=== PATIENT | female | born 1945 | race Caucasian/White ===

== ENCOUNTER 2019-05-03 18:03 | Inpatient (IN) ==
[2019-05-03 23:00] LABS: URINE SOURCE CLEAN CATCH
[2019-05-03 23:04] LABS: BILIRUBIN URINE NEGATIVE (NEGATIVE); BLOOD URINE TRACE (NEGATIVE); COLOR YELLOW; GLUCOSE URINE NEGATIVE (NEGATIVE); KETONE URINE NEGATIVE (NEGATIVE); LEUKOCYTES URINE LARGE (NEGATIVE); NITRITE URINE POSITIVE (NEGATIVE); PH URINE 6.5; PROTEIN URINE TRACE mg/dL (NEGATIVE); SP GRAVITY URINE 1.016; TURBIDITY URINE HAZY (CLEAR); UROBILINOGEN URINE NORMAL (NORMAL)
[2019-05-03 23:14] LABS: UR EPITHELIAL CELLS <10 /HPF (<10); URINE BACTERIA 1+ /HPF; URINE CASTS NONE SEEN; URINE CRYSTALS NONE SEEN; URINE RBC <10 /HPF (<10); URINE SMALL ROUND CELLS NONE SEEN; URINE WBC TNTC /HPF (<10); URINE YEAST PRESENT
[2019-05-03 23:21] LABS: BASO# 0.05 X1000 (0.0-0.2); BASO% 0.6 % (0.0-0.8); EOS# 0.34 X1000 (0.0-0.7); EOS% 3.9 % (0.0-10.0); HEMATOCRIT 35.5 % (37.0-47.0); LYMPH# 2.58 X1000 (1.2-3.4); LYMPH% 29.9 % (20.5-51.1); MCH 26.8 PG (27-31); MCV 86.6 FL (81-99); MONO# 0.63 X1000 (0.11-0.59); MONO% 7.3 % (1.7-9.3); MPV 10.2 FL (7.4-10.4); NEUT# 5.04 X1000 (1.4-6.5); NEUT% 58.3 % (42.2-75.2); PLT 168 X1000 (130-400); RDW 15.5 % (11.5-14.5); WBC 8.64 X1000 (4.8-10.8)
[2019-05-03] MEDS ORDERED: LEVAQUIN 500 MG/D5W 500 MG/100 ML IVPB IV ONE (23:26)
--- NOTE | 2019-05-03 23:26 | PROVIDER DOCUMENTATION ---
This chart was entered by Maddie Swan Scribe, acting as scribe for Abhi Em MD. HPI-Musculoskeletal Pain/Inj - GENERAL Chief Complaint: Fall Stated Complaint: FALL Time Seen by Provider: 05/03/19 21:45 Source: patient, family (daughter), EMS - HX OF PRESENT ILLNESS-MUSKULOSKELTAL Nature of Presenting Problem: 74 yowf presents to the ed via ems with her daughter. pt sts she fell today going down 2 steps hitting her back on a sewing machine. pt daughter sts pt has frequent falls and 3 weeks prior had a compression fx in her back and is scheduled for an MRI tomorrow. pt fell at approximately 1430 today and daughter found pt in the floor of her home at 1700. pt c/o thoracic back, left knee pain. pt denies LOC with todays fall. daughter sts she believes the pt fell the first time landing on the left knee and then once trying to get up fell backwards hitting her back. Quality of Pain: reports: aching Severity in ED: moderate Onset/Duration: this afternoon (1430) Timing: still present Modifying Factors: worse with: movement, palpation Any recent injury?: Yes Locality of Occurance: Home Similar Symptoms Previously?: Yes (freq falls) Recently seen or treated by another doctor?: No - FALL INJURY Location of Pain/Injury: reports: neck, lower extremity Pain Radiation: reports: back Reason for Fall: reports: lost balance Symptoms prior to fall:: reports: dizzy/lightheaded Loss of Consciousness: no loss of consciousness Injury Associated Symptoms: reports: back/neck pain, joint pain. denies: shortness of breath, vomiting Review of Systems - Adult - REVIEW OF SYSTEMS - ADULT Constitutional: denies: chills, fever Eyes: reports: no symptoms reported Ears, Nose, Mouth & Throat: reports: no symptoms reported Cardiovascular: denies: chest pain, palpitations Respiratory: denies: cough, shortness of breath, wheezing Gastrointestinal: denies: diarrhea, nausea, vomiting Genitourinary: reports: no symptoms reported Musculoskeletal: reports: see HPI, back pain, joint pain, neck pain Integumentary: reports: no symptoms reported Neurological: reports: see HPI, dizziness/vertigo, loss of balance. denies: headache/migraines Psychiatric: reports: no symptoms reported Endocrine: reports: no symptoms reported Hematologic/Lymphatic: reports: no symptoms reported Allergic/Immunologic: reports: no symptoms reported All Other Systems: Reviewed and Negative Past History - Adult - PAST MEDICAL HISTORY-ADULT Review of Records: reports: Old Records Reviewed, Nursing Assessment Review, Medications Reviewed, Social history reviewed & non-contributory. Major Childhood Illnesses: reports: denies history Cardiovascular: reports: HTN, hyperlipidemia Respiratory: reports: denies history Gastrointestinal: reports: GERD Obstetrical/Gynecological: reports: denies history Genitourinary: reports: chronic UTI's Musculoskeletal: reports: denies history Neurological: reports: denies history Psychiatric: reports: denies history Endocrine/Immune: reports: thyroid disorder Other Conditions: reports: denies history - PRIOR SURGERIES/PROCEDURES Surgical/Procedure History: reports: cholecystectomy, hysterectomy - IMMUNIZATION STATUS Childhood Immunizations: See Nurse Assessment Flu Vaccine: See Nurse Assessment - FAMILY HISTORY Family History: reviewed, not pertinent - SOCIAL HISTORY Smoking: denies Substance Use: denies Living Situation: alone Physical Exam-Injury Related - Physical Exam-Injury Related Initial Vital Signs Reviewed: Yes General Appearance: appears well (pt is nontoxic in appearance), alert, mild distress, obese Eyes: PERRL/EOMI, pink conjunctivae Head, Ears, Nose, Mouth & Throat: moist mucous membranes Neck: normal inspection, tender lateral. negative: ecchymosis Respiratory: chest non-tender, lungs clear, normal breath sounds Cardiovascular: normal peripheral pulses, regular rate, rhythm Chest/Breast: deferred Abdominal Exam: normal bowel sounds, non tender, soft Female Genitalia/Pelvic Exam: deferred Rectal Exam: deferred Hemoccult Exam: deferred Lymphatic: no adenopathy Back Exam: no CVA tenderness, no vertebral tenderness, other (thoracic back pain with noted abrasion) Extremity: normal inspection, normal capillary refill, pelvis stable, tenderness (left knee pain) Integumentary: normal color, warm/dry, abrasion (thoracic back) Neurologic: grossly normal Psych/Mental Status: normal mood/affect, normal thought content, normal thought process, oriented x 3 - Glascow Coma Score Best Eye Response ([place]): (4) open spontaneously Best Verbal Response ([place]): (5) oriented Best Motor Response ([place]): (6) obeys commands [place] Total: 15 Progress - PLAN OF CARE/RESULTS Progress/Plan/Lab Results: Vital Signs - 8 hr 05/03/19 19:10 Temperature 98.5 F Pulse Rate 73 Respiratory Rate 18 Blood Pressure 111/64 O2 Sat by Pulse Oximetry 95 Laboratory Results - last 24 hr 05/03/19 05/03/19 22:55 23:11 WBC 8.64 RBC 4.10 L Hgb 11.0 L Hct 35.5 L MCV 86.6 MCH 26.8 L MCHC 31.0 L RDW Std Deviation 15.5 H Plt Count 168 MPV 10.2 Immature Gran % (Auto) 0.0 Neut % (Auto) 58.3 Lymph % (Auto) 29.9 Robertson % (Auto) 7.3 Eos % (Auto) 3.9 Baso % (Auto) 0.6 Immature Gran # (Auto) 0.00 Neut # (Auto) 5.04 Lymph # (Auto) 2.58 Robertson # (Auto) 0.63 H Eos # (Auto) 0.34 Baso # (Auto) 0.05 Urine Source CLEAN CATCH Urine Color YELLOW Urine Turbidity HAZY Urine pH 6.5 Ur Specific [place] 1.016 Urine Protein TRACE A Ur Glucose (Stick) NEGATIVE Ur Ketones (Stick) NEGATIVE Urine Blood TRACE A Urine Nitrite POSITIVE A Urine Bilirubin NEGATIVE Urobilinogen Dipstick NORMAL Urine Leukocytes LARGE A Urine WBC (Auto) TNTC A Urine RBC (Auto) <10 U Epithel Cells (Auto) <10 Urine Bacteria (Auto) 1+ Urine Crystals NONE SEEN Small Round Cells NONE SEEN Urine Casts NONE SEEN Urine Yeast-like Cells PRESENT Orders Category Date Time Status CT HEAD/C-SPINE W/O CONTRAST [CT] Stat Exams 05/03/19 22:[address] T-SPINE/L-SPINE W/O CON [CT] Stat Exams 05/03/19 22:01 Taken KNEE 3 VIEWS LEFT [RAD] Stat Exams 05/03/19 22:05 Taken cxr [CHEST-1 VIEW] [RAD] Stat Exams 05/03/19 22:06 Taken CBC WITH ELECTRONIC DIFF [HEME] Stat Lab 05/03/19 23:11 Completed CK PROFILE [SP CHEM] Stat Lab 05/03/19 23:11 Received COMPREHENSIVE METABOLIC PANEL [CHEM] Stat Lab 05/03/19 23:11 Received URINALYSIS W/POSS RFLX CULT [URINALYSIS] Stat Lab 05/03/19 22:55 Completed URINE MANUAL MICROSCOPIC [URINALYSIS] Stat Lab 05/03/19 22:55 Completed Result Diagrams: 05/03/19 23:11 - CT/MRI 1 CT Study: Cervical Spine (normal), Head (no acute intracranial abnormality, age appropriate exam), Lumbar Spine (Inferior L2 acute compression fx of 10-15%. old L1 compression fracture status post vertebroplasty), other (Ct thoracic spine findings osteoporpsis moderate kyphoscoliosis. multilevel degenerative disc disease. minimal loss of height of T12, indetermined chronicity. 3 cm right lower lobe liver cyst. impression:kyphoscoliosis and spondylosis. probable old minimal compression fx of T12 (L1 vertroplasty)) - CONSULTS/PCP/HOSPITALIST Notification #1 *Consult/PCP/Hospitalist*: Dr Mtz Time Discussed: 23:25 Consult Disposition: Will see in ED, Admit Departure - Departure Date of Disposition Decision: 05/03/19 Time of Disposition Decision: 23:23 DIAGNOSIS: UTI (urinary tract infection), Weakness, Falls frequently, Compression fracture Disposition: ADMITTED INPATIENT 09 Certified Medical Emergency: Emergent Condition: Fair Referrals and Follow-Ups: None,PCP [Primary Care Provider] - - Critical Care Note This patient required my direct & personal management of CC.: No Attestation - Physician/ CHRISTIN Attestation Patient care was provided by Advanced Practice Provider:: No The physician spent face to face time with patient:: Yes Advanced Practice Provider documentation review:: Supervising physician onsite and consulted in the evaluation and care of this patient. The physician did have a face to face encounter with the patient. This chart was documented by the indicated scribe, (Maddie Swan Scribe) and accurately reflects the services I performed and decisions made by me, Abhi Em MD, as attested by the provider's signature.
[2019-05-03 23:37] LABS: ALB/GLOB RATIO 1.2; ALBUMIN 3.8 g/dL (3.5-5.0); CALCIUM 8.7 mg/dL (8.8-10.2); CREATININE 1.2 mg/dL (0.5-0.9); POTASSIUM 4.2 mmol/L (3.5-5.1); TOTAL BILIRUBIN 0.68 mg/dL (0.20-1.00); TOTAL PROTEIN 7.1 g/dL (6.3-8.3)
[2019-05-04] MEDS ORDERED: ZOFRAN IV PRN (01:27)
--- NOTE | 2019-05-04 01:28 | HISTORY AND PHYSICAL ---
PRIMARY CARE PROVIDER: Dr. Suzi Santillan. CHIEF COMPLAINT: Falls, not feeling well. HISTORY OF PRESENTING ILLNESS: A 74-year-old female with a history of hypertension, hypothyroidism, COPD and GERD, who had presented to the emergency department after she had a fall. She apparently has been having falls for the past year or so. She recently also had some compression fractures to the back. She states that she did not know what happened, said her knees became weak and she fell again. She was brought to the emergency department and evaluated. Due to her presenting symptoms, it was thought that we will place her for observation for further evaluation and management. At the time of my examination the patient denied any headache, fever, chills, chest pain, shortness of breath or any weight changes, but complained of back pain and not feeling well. The patient apparently also had just finished physical therapy recently. PAST MEDICAL HISTORY: Includes hypertension, hypothyroidism, COPD, GERD, depression. PAST SURGICAL HISTORY: Vertebroplasty, cholecystectomy, appendectomy, hysterectomy. ALLERGIES: Penicillin and sulfa. MEDICATIONS: Current medications include albuterol inhaler q.4 hours, atenolol 50 mg p.o. daily, hydrochlorothiazide 12.5 mg p.o. daily, imipramine 25 mg p.o. t.i.d., levothyroxine 112 mcg p.o. daily, omeprazole 20 mg p.o. daily, prednisone 10 mg p.o. b.i.d., sertraline 100 mg p.o. daily. SOCIAL HISTORY: She is a former smoker. No history of alcohol or illicit drug use. FAMILY HISTORY: Positive for coronary disease in father. REVIEW OF SYSTEMS: Fourteen-point review of systems is as in HPI. Other systems are negative. PHYSICAL EXAMINATION: GENERAL: Cooperative, friendly female. She is resting more comfortably now. VITAL SIGNS: Temperature 98.5 degrees, pulse 73, respiration 18, blood pressure 111/64. HEENT: Extraocular movements intact. PERRLA. NECK: No masses. CHEST: Clear to auscultation. CARDIOVASCULAR: Regular rate and rhythm. ABDOMEN: Soft. Positive bowel sounds. BACK: Lumbar tenderness. NEUROLOGIC: She is awake, alert and oriented x3. GENITOURINARY: No bladder distention. SKIN: Warm. LABORATORY DATA: WBCs 8.64, hemoglobin 11.1, hematocrit 35.5, platelets 168,000. UA is nitrite- positive. Sodium 140, potassium 4.2, chloride 101, CO2 is 27, BUN is 22, creatinine is 1.2, glucose is 87. ASSESSMENT: A 74-year-old female with a history of hypertension, hypothyroidism, chronic obstructive pulmonary disease and gastroesophageal reflux disease, with a history of multiple falls. She just finished physical therapy last week. Presented to the emergency department after she had a fall again. She developed a moderate amount of back pain. She also was noted to have a urinary tract infection. Due to these findings, it was thought that we will place her for observation for further evaluation and management. 1. Status post multiple falls. 2. Complicated urinary tract infection. 3. Hypertension. 4. Chronic obstructive pulmonary disease. PLAN: 1. We will admit the patient to the medical floor with telemetry. 2. We will put the patient on fall precautions. 3. We will start the patient on IV antibiotics and check urine culture. 4. Monitor blood pressure closely. 5. Continue with DuoNeb p.r.n. 6. Put patient on DVT prophylaxis with SCDs. 7. We will continue to follow, reassess and make further recommendations based on the patient's clinical course. cc: Eugenio Mtz MD
[2019-05-04] MEDS: NS 1,000 ML IV SCH ×2 (02:01→14:47)
[2019-05-04] MEDS: INVANZ 1 GM/NS 1 GM/50 ML IVPB IV SCH (02:01)
--- NOTE | 2019-05-04 06:38 | Diag Imaging Result Doc PS360 ---
CT HEAD/C-SPINE W/O CONTRAST, CT T-SPINE/L-SPINE W/O CON - 05/03/2019 INDICATION: fall, trauma, neck pain COMPARISON: 01/20/2019, 04/19/2019 FINDINGS: Head CT: There is mild periventricular white matter chronic microvascular ischemia, stable from prior. The ventricles and sulci are normal in size and contour. No intracranial mass or hemorrhage. The skull is intact. The sinuses, mastoids, and middle ears are clear. Cervical spine: Alignment is anatomic. No fracture or subluxation. Vertebral body heights are preserved. Stable advanced degenerative disc disease. Stable facet degeneration. Thoracic spine: Alignment is anatomic. There is advanced multilevel degenerative disc disease. Minimal anterior wedging of T12 is stable from prior and indeterminate. Lumbar spine: Stable high-grade L1 compression fracture with vertebroplasty cement. There is grossly stable compression fracture of L2 by about 10-20%. Remainder of the lumbar spine appears intact. Disc spaces are overall preserved. IMPRESSION: 1. No acute injury to the head or cervical spine. 2. Compression fracture at L2 is stable from recent prior x-rays. This exam was performed using automated exposure control, adjustment of mA or kV according to patient size, and/or use of iterative reconstruction technique Electronically signed by Wilbert Wade 05/04/2019 6:35 AM
--- NOTE | 2019-05-04 07:03 | Diag Imaging Result Doc PS360 ---
EXAM: CHEST-1 VIEW 05/03/2019 HISTORY: fall, injury TECHNIQUE: AP chest COMMENT: The lungs are better expanded than on 01/30/2019. There are some coarse opacities in both lung bases which may be due to fibrosis and which were present previously. There is no evidence of pneumothorax or pleural fluid collection. IMPRESSION: No acute disease. Electronically signed by Jian Kumar 05/04/2019 7:01 AM
--- NOTE | 2019-05-04 07:32 | Diag Imaging Result Doc PS360 ---
EXAM: KNEE 3 VIEWS LEFT 05/03/2019 HISTORY: fall, knee pain TECHNIQUE: Left knee three views COMMENT: There is osteophyte formation on both sides as well as in the patellofemoral joint. There is no evidence of acute fracture or dislocation. There is a fabella. Compared to 01/20/2019 there has been no significant change. IMPRESSION: Osteoarthritis. Electronically signed by Jian Kumar 05/04/2019 7:29 AM
[2019-05-04 07:57] LABS: BASO# 0.04 X1000 (0.0-0.2); BASO% 0.6 % (0.0-0.8); EOS# 0.36 X1000 (0.0-0.7); EOS% 5.8 % (0.0-10.0); HEMATOCRIT 33.8 % (37.0-47.0); HEMOGLOBIN 10.2 g/dL (12.0-16.0); LYMPH# 2.16 X1000 (1.2-3.4); LYMPH% 34.5 % (20.5-51.1); MCH 26.4 PG (27-31); MCHC 30.2 g/dL (33-37); MCV 87.3 FL (81-99); MONO# 0.54 X1000 (0.11-0.59); MONO% 8.6 % (1.7-9.3); MPV 10.4 FL (7.4-10.4); NEUT# 3.16 X1000 (1.4-6.5); NEUT% 50.5 % (42.2-75.2); PLT 148 X1000 (130-400); RBC 3.87 XMIL (4.2-5.4); RDW 15.2 % (11.5-14.5); WBC 6.26 X1000 (4.8-10.8)
[2019-05-04 08:21] LABS: CALCIUM 8.6 mg/dL (8.8-10.2); CREATININE 1.1 mg/dL (0.5-0.9); POTASSIUM 4.3 mmol/L (3.5-5.1)
[2019-05-04] MEDS ORDERED: ULTRAM PO PRN (16:23)
--- NOTE | 2019-05-04 17:03 | PROGRESS NOTE ---
DATE: 05/04/2019 SUBJECTIVE: Ms. Blanton is a patient Dr. Suzi Santillan. She had a fall. A 74-year-old with history of hypertension, hypothyroidism, COPD, gastroesophageal reflux disease. She came to the emergency room after a fall. Apparently, she had been having falls but more frequent this last year, so recently had some compression fractures in the back. States she did not know what happened. Said that her knees became weak and she fell again, brought to the emergency department and evaluated. On examination the patient denied any headache, fever, chills, chest pain, shortness of breath, weight changes but it appeared that she might have had some new compression fractures and she did have some urinary sediment. We are treating her for possible urinary tract infection. History of hypertension, COPD. Her breathing status seems to be good. PHYSICAL EXAMINATION: Vital signs: On exam today, he remains afebrile pulse respirations 18, blood pressure 127/49. Eyes: Pupils are equal and round. Lungs: Clear in all lung macdonald. Cardiovascular: Regular rhythm and rate without murmur or S3. Urine output has been about 300 mL. REVIEW OF LABS: White count 6260, hematocrit was 33, hemoglobin 10, platelet count 148,000, MCV is 87. Sodium 140, potassium 4.3, chloride 106, bicarb 26, BUN 20, creatinine 1.1. AST was 31, ALT is 17, alkaline phosphatase is 105. Urinalysis has [id number]-count white blood cells, and 1+ bacteria, but I think she was asymptomatic, not sure how long she laid on the floor. Her chest x-ray no acute disease. Her head and cervical spine CT no acute injury in the head or cervical spine. Compression fracture in L2 is stable from prior x-rays. Thoracic and lumbar spine CT compression fracture L2, stable from recent. She had x-ray of her left knee. There is osteoarthritis but no sign of fractures. REVIEW OF PRESENT ORDERS: She is on ertapenem 1 g IV q. 24 hours and levofloxacin. She got 1 dose in the emergency room. Looking at her home medications she is on imipramine 25 mg t.i.d. She is on her levothyroxine 112 mcg daily, which will continue. She is on Prilosec 20 mg a day. Her sertraline 100 mg daily. She gets Lasix 40 mg a day p.o. and she was on Singulair 10 mg a day. She takes spironolactone 25 mg daily and she gets tramadol 50 mg every 12 hours. I will give her tramadol 50 mg q.6 hours p.r.n. pain. cc: Aldair Early MD
[2019-05-04] MEDS: TOFRANIL PO SCH (18:12)
[2019-05-05] MEDS: INVANZ 1 GM/NS 1 GM/50 ML IVPB IV SCH (01:07)
[2019-05-05] MEDS: PRILOSEC PO SCH (06:50)
[2019-05-05] MEDS: SYNTHROID PO SCH (06:50)
[2019-05-05] MEDS ORDERED: ALDACTONE PO SCH (09:00)
[2019-05-05] MEDS ORDERED: LASIX PO SCH (09:00)
[2019-05-05] MEDS ORDERED: SINGULAIR PO SCH (09:00)
[2019-05-05] MEDS ORDERED: ZOLOFT PO SCH (09:00)
[2019-05-05] MEDS: TOFRANIL PO SCH (09:38)
--- NOTE | 2019-05-05 13:30 | PROGRESS NOTE ---
DATE: 05/05/2019 SUBJECTIVE: This is a 74-year-old. She was brought in. She was not feeling well. She is a patient of Dr. Suzi Santillan. Has a history of hypertension, hypothyroidism, COPD, gastroesophageal reflux, who presented to the emergency room after she had a fall and apparently she has had several falls over this last year. She recently also had some compression fractures in her back. She had another fall and they brought her back in through the emergency room. She has some confusion and delirium today. We have not been giving her any tramadol. In fact, I am going to stop the tramadol. I am going to stop her Zoloft as well, and imipramine. We will continue physical therapy. We are looking for rehab potentials. For delirium and confusion, I am going to stop some medicines to see if this will help. I believe she has a catheter in, I think, and she had some sediment in the urine, so we are treating her for possible urinary tract infection. LABORATORY DATA: Reviewed from the . Hematocrit stable at 33, hemoglobin 10. Chemistries unremarkable. Creatinine is 1.1, sodium 140, potassium 4.3, chloride 106 BUN 20. I am going to see if we can stop some medications and see if this will help her. cc: Aldair Early MD
[2019-05-06] MEDS: INVANZ 1 GM/NS 1 GM/50 ML IVPB IV SCH (01:55)
[2019-05-06] MEDS: PRILOSEC PO SCH (06:17)
[2019-05-06] MEDS: SYNTHROID PO SCH (06:17)
--- NOTE | 2019-05-06 11:38 | PROGRESS NOTE ---
DATE: 05/06/2019 SUBJECTIVE: Ms. Blanton is better, and she is more awake and attentive. She does not remember the events of the last couple days, and she appears calm and oriented to person and placed this morning. OBJECTIVE: Vital Signs: Temperature 98.1 degrees, pulse 100, respirations 18, blood pressure 130/71. HEENT: Pupils are equal and round. Lungs: Clear in all lung macdonald. Cardiovascular: Regular rate without murmur or S3. Abdomen: Soft. Skin: Warm and dry. ASSESSMENT AND PLAN: 1. This is a 74-year-old who was brought in she was not feeling well, a patient of Dr. Suzi Santillan, has a history of hypertension, hypothyroidism, COPD, gastroesophageal reflux, and presented to the emergency room after a fall. She had quite a bit of delirium yesterday and I have backed off from quite a few of her medications. She looks better. I will add Flonase back to her regimen. I am treating her for a potential urinary tract infection, so we will continue her ertapenem IV. 2. History of hypothyroidism. Aware. So we will get some physical therapy involved and encourage p.o. intake. cc: Aldair Early MD
[2019-05-06] MEDS: FLONASE NAS SCH (12:28)
[2019-05-07] MEDS: INVANZ 1 GM/NS 1 GM/50 ML IVPB IV SCH (01:42)
[2019-05-07] MEDS: SYNTHROID PO SCH (06:18)
[2019-05-07] MEDS: PRILOSEC PO SCH (06:18)
[2019-05-07] MEDS: FLONASE NAS SCH (09:57)
--- NOTE | 2019-05-07 13:25 | PROGRESS NOTE ---
DATE: 05/07/2019 SUBJECTIVE: Ms. Blanton did not sleep much last night, but she was not trying to get out of bed and she did a lot talking, just not very sleepy. She looks comfortable this morning with no complaints, breathing comfortably. OBJECTIVE: Vital Signs: She remains afebrile, temperature 98.3 degrees, pulse 109, respirations 18, blood pressure 150/64. HEENT: Pupils are equal and round. Lungs: Clear in all lung macdonald. Cardiovascular: Regular rate without murmur or S3. Abdomen: Soft. Skin: Warm and dry. ASSESSMENT AND PLAN: 1. A patient of Dr. Suzi Santillan. History of hypertension, hypothyroidism, chronic obstructive pulmonary disease, gastroesophageal reflux who presented to the emergency room after a fall, quite a bit of delirium. The first day, back down to her medicines, she is doing much better. I am going to try some Seroquel at night. 2. Treating for urinary tract infection with ertapenem. 3. Hypothyroidism. Appears euthyroid. She is getting her levothyroxine 112 mcg daily. She is on omeprazole 20 mg daily, so I will try a little bit of Seroquel. We will try 50 mg at bedtime. cc: Aldair Early MD
[2019-05-07] MEDS: SEROQUEL PO SCH (20:56)
[2019-05-08] MEDS: INVANZ 1 GM/NS 1 GM/50 ML IVPB IV SCH (01:56)
[2019-05-08] MEDS: SYNTHROID PO SCH (06:13)
[2019-05-08] MEDS: PRILOSEC PO SCH (06:13)
[2019-05-08] MEDS: FLONASE NAS SCH (09:44)
--- NOTE | 2019-05-08 16:06 | PROGRESS NOTE ---
DATE: 05/08/2019 SUBJECTIVE: Ms Blanton is sitting up in a chair. She is awake and alert and oriented x3. She is very pleasant. OBJECTIVE: Vital signs: Temp 98.2 degrees, pulse 100, respirations 16, blood pressure 142/66. HEENT: Pupils are equal and round. Lungs: Clear in all lung macdonald. Cardiovascular: Regular rhythm and rate without murmur or S3. Abdomen: Soft. Skin: Warm and dry. Urine output was 7200 mL. ASSESSMENT AND PLAN: 1. Patient of Dr. Suzi Santillan. She has a past history of hypertension, hypothyroidism, chronic obstructive pulmonary disease, gastroesophageal reflux. Presented to the emergency room after a fall and she was very confused and lethargic. I backed down on her medications and then tried a little bit of Seroquel at night, which seems thus far to have made a marked improvement. She appears more comfortable. She is eating and we will see how she does with physical therapy. I think the plan is to try and go to rehab, but we will see how physical therapy assesses her. 2. Treating for urinary tract infection with ertapenem. I am not sure if she was symptomatic, but her urine culture grew out Escherichia coli. It was sensitive to cefazolin and Levaquin, so I will change her over to Levaquin p.o. 3. History of hypothyroidism. Appears to be euthyroid. Continue her levothyroxine at 112 mcg daily. We will ask [employer] to see about her discharge planning. She may want to go home with home health, but she may want to go to rehab still. MEDICATIONS: Right now she is on Seroquel 50 mg at bedtime, Flonase 1 puff each nostril daily, Levaquin 500 mg p.o. daily, Synthroid 112 mcg daily, Prilosec 20 mg a day. cc: Aldair Early MD
[2019-05-08] MEDS: LEVAQUIN PO SCH (16:37)
[2019-05-08] MEDS: SEROQUEL PO SCH (20:24)
[2019-05-09] MEDS: PRILOSEC PO SCH (06:06)
[2019-05-09] MEDS: SYNTHROID PO SCH (06:06)
[2019-05-09] MEDS: LEVAQUIN PO SCH (09:19)
[2019-05-09] MEDS: FLONASE NAS SCH (09:19)
[2019-05-09 09:20] LABS: HEMATOCRIT 33.8 % (37.0-47.0); HEMOGLOBIN 10.5 g/dL (12.0-16.0); MCH 26.9 PG (27-31); MCHC 31.1 g/dL (33-37); MCV 86.4 FL (81-99); MPV 10.5 FL (7.4-10.4); RBC 3.91 XMIL (4.2-5.4); RDW 15.1 % (11.5-14.5); WBC 4.98 X1000 (4.8-10.8)
[2019-05-09 09:41] LABS: AGAP 10; ALBUMIN 3.4 g/dL (3.5-5.0); ALKALINE PHOSPHATASE 89 U/L (32-104); BUN 10 mg/dL (8-22); CALCIUM 8.7 mg/dL (8.8-10.2); CHLORIDE 105 mmol/L (98-107); COSMO 278; CREATININE 0.8 mg/dL (0.5-0.9); ESTIMATED GFR > 60; GLUCOSE 98 mg/dL (70-104); GOT 34 U/L (10-30); GPT 16 U/L (10-36); POTASSIUM 3.4 mmol/L (3.5-5.1); SODIUM 140 mmol/L (136-145); TCO2 25 mmol/L (25-35); TOTAL BILIRUBIN 0.61 mg/dL (0.20-1.00); TOTAL PROTEIN 6.7 g/dL (6.3-8.3)
[2019-05-09] MEDS: TYLENOL PO PRN (10:37)
[2019-05-09] MEDS ORDERED: KLOR-CON PO ONE (12:16)
--- NOTE | 2019-05-09 22:23 | PROGRESS NOTE ---
DATE: 05/09/2019 SUBJECTIVE: The patient is alert and oriented. She states that she feels good today. No acute events overnight. She is afebrile. OBJECTIVE: Vital Signs: Temperature 98 degrees, blood pressure 154/65, heart rate 108, respirations 18, O2 saturation 97% on room air. General: This is an elderly female lying in bed in no acute distress. Heart: S1, S2 normal. Tachycardic. Lungs: Clear to auscultation bilaterally. Abdomen: Positive bowel sounds. Soft, nontender, nondistended. Extremities: No edema. No cyanosis. Neurologic: The patient is alert and oriented x3. LABORATORY DATA: Reviewed. ASSESSMENT AND PLAN: 1. Metabolic encephalopathy secondary to urinary tract infection. Resolved. 2. Urinary tract infection secondary to Escherichia coli. We will likely switch the patient to oral antibiotic therapy tomorrow. 3. Hypothyroidism. Continue on Synthroid. 4. Hypokalemia. We will replace the patient's potassium. 5. Deep vein thrombosis prophylaxis. We will start the patient on Lovenox. cc: Sonya Gill MD MTDD
[2019-05-09] MEDS: LOVENOX SUBQ SCH (22:34)
[2019-05-09] MEDS: SEROQUEL PO SCH (22:34)
[2019-05-10] MEDS: SYNTHROID PO SCH (06:14)
[2019-05-10] MEDS: PRILOSEC PO SCH (06:14)
[2019-05-10] MEDS: LEVAQUIN PO SCH (08:03)
[2019-05-10] MEDS: FLONASE NAS SCH (08:03)
[2019-05-10 08:29] LABS: AGAP 11; BUN 10 mg/dL (8-22); CALCIUM 8.4 mg/dL (8.8-10.2); CHLORIDE 109 mmol/L (98-107); COSMO 287; CREATININE 0.8 mg/dL (0.5-0.9); ESTIMATED GFR > 60; GLUCOSE 123 mg/dL (70-104); POTASSIUM 3.6 mmol/L (3.5-5.1); SODIUM 144 mmol/L (136-145); TCO2 24 mmol/L (25-35)
[2019-05-10] MEDS: TYLENOL PO PRN (10:17)
--- NOTE | 2019-05-10 13:28 | Diag Imaging Result Doc PS360 ---
EXAM: CHEST-PORTABLE 05/10/2019 HISTORY: dyspnea TECHNIQUE: AP portable upright at 1317 COMMENT: The inspiration is markedly suboptimal. There has been no significant change compared to 05/03/2019 otherwise. IMPRESSION: Poor inspiration. Electronically signed by Jian Kumar 05/10/2019 1:26 PM
[2019-05-10 16:26] LABS: ALLEN TEST YES; BE 0.2 mmoll (-3.0-3.0); BLOOD TYPE ARTERIAL; METHB 1.5 % (0.0-1.5); MODALITY ROOM AIR; O2(CT) 14.7 mL/dL (15.0-23.0); O2HB 93.8 % (95.0-99.0); PCO2(98.6) 31 mmHg (35-45); PO2(98.6) 68 mmHg (60-100); SAMPLE BLOOD; THB 11.1 g/dL (11.5-17.4); pH(98.6) 7.48 (7.35-7.45)
[2019-05-10] MEDS: AZACTAM 1 GM in NS 50 ML IV SCH (19:17)
--- NOTE | 2019-05-10 20:35 | PROGRESS NOTE ---
DATE: 05/10/2019 SUBJECTIVE: The patient was noted to be confused and stated that she was at home when asked where she was. OBJECTIVE: Vital Signs: Temperature 99.1 degrees, blood pressure 144/85, heart rate 127, respirations 17, O2 saturation 97% on room air. General: This is an elderly female lying in bed in no acute distress. Heart: S1, S2 normal. Tachycardic. Lungs: Clear to auscultation bilaterally. Abdomen: Positive bowel sounds. Soft, obese, nontender, nondistended. Extremities: 2+ edema to the legs. Neurologic: The patient is oriented to person only. She is able to move all 4 extremities. LABS: Sodium 144, potassium 3.6, chloride 109, CO2 24, BUN 10, creatinine 0.8, glucose 123, magnesium 1.9. ASSESSMENT AND PLAN: 1. Metabolic encephalopathy. The patient had a sudden onset of increased confusion this afternoon. A head CT was ordered. We will also order another urinalysis to ensure resolution of the patient's underlying infection. 2. Urinary tract infection secondary to Escherichia coli. A repeat urinalysis has been ordered. Continue with antibiotic therapy. 3. Hypothyroidism. Continue on Synthroid. 4. Anemia. We will check iron studies. 5. Acute kidney injury. Resolved. 6. Gastroesophageal reflux disease. Continue on Prilosec. 7. Deep vein thrombosis prophylaxis. Continue on Lovenox. cc: Sonya Gill MD MTDD
--- NOTE | 2019-05-10 21:09 | EKG Report ---
Test Performed on : 05/10/2019 8:48:21 PM Test Reason : tachycardia Blood Pressure : / mmHG Vent. Rate : 116 BPM Atrial Rate : 116 BPM P-R Int : 120 ms QRS Dur : 076 ms QT Int : 452 ms P-R-T Axes : 012 032 038 degrees QTc Int : 628 ms Critical Test Result: Long QTc Sinus tachycardia. with premature atrial complexes. Nonspecific T wave abnormality Prolonged QT Abnormal ECG When compared with ECG of 30-JAN-2019 14:24, premature atrial complexes. are now present Nonspecific T wave abnormality, worse in Anterolateral leads Confirmed by Adam Yanes MD ([id number]) on 05/11/2019 7:43:19 PM
--- NOTE | 2019-05-10 21:42 | Diag Imaging Result Doc PS360 ---
EXAM: CT HEAD W/O CONTRAST INDICATION: encephalopathy TECHNIQUE: This exam was performed using automated exposure control, adjustment of mA or kV according to patient size, and/or use of iterative reconstruction technique. COMPARISON: None. FINDINGS: There is patchy low attenuation in the periventricular and subcortical white matter suggesting mild microangiopathy, stable. There is no definite acute infarct given the limited sensitivity of CT versus MRI. There is no discrete intracranial mass, mass effect, or intracranial hemorrhage. The surrounding soft tissues and bony structures are essentially unremarkable. IMPRESSION: Stable chronic appearing white matter changes. No evidence of acute intracranial pathology. Electronically signed by Erik Allison 05/10/2019 9:40 PM
--- NOTE | 2019-05-10 21:56 | Diag Imaging Result Doc PS360 ---
EXAM: CT THORAX/ABD/PELVIS W/O CON INDICATION: pneumonia/abdominal pain TECHNIQUE: This exam was performed using automated exposure control, adjustment of mA or kV according to patient size, and/or use of iterative reconstruction technique. COMPARISON: None. FINDINGS: CHEST: There is minimal subsegmental atelectasis at the left lung base. The lungs are grossly clear, otherwise. There is no pleural fluid collection and no pneumothorax. There is no cardiomegaly. There is no evidence of significant mediastinal or hilar lymphadenopathy. ABDOMEN/PELVIS: The contour of the liver is somewhat nodular suggesting possible cirrhosis. There is an incidental right hepatic lobe cyst. The gallbladder is not identified indicating likely prior cholecystectomy. There is no evidence of biliary dilatation. The spleen, pancreas, adrenal glands, kidneys, and urinary bladder are unremarkable. There is evidence of a prior hysterectomy. There is diverticulosis coli. There is extensive inflammatory stranding that appears to emanate from a prominent diverticulum at the proximal sigmoid colon and there is short segment colonic wall thickening consistent with acute diverticulitis. No definite extraluminal gas or pericolonic abscess is appreciated to indicate perforation on the current study. There is no evidence of bowel obstruction. No small bowel wall thickening is appreciated. The remainder of the GI tract is essentially unremarkable. IMPRESSION: 1.Acute sigmoid colonic diverticulitis. No evidence of perforation on the current study. 2.Vaguely nodular liver contour suggestive of cirrhosis. 3.Minimal left basilar subsegmental atelectasis. No definite acute chest pathology, otherwise. 4.Other incidental/nonacute findings detailed above. Electronically signed by Erik Allison 05/10/2019 9:53 PM
[2019-05-11] MEDS: AZACTAM 1 GM in NS 50 ML IV SCH (00:14)
[2019-05-11] MEDS: LOVENOX SUBQ SCH ×2 (00:15→22:17)
[2019-05-11] MEDS: SEROQUEL PO SCH ×2 (00:15→22:16)
[2019-05-11 05:38] LABS: URINE SOURCE CLEAN CATCH
[2019-05-11 05:51] LABS: BILIRUBIN URINE NEGATIVE (NEGATIVE); BLOOD URINE TRACE (NEGATIVE); COLOR YELLOW; GLUCOSE URINE NEGATIVE (NEGATIVE); KETONE URINE NEGATIVE (NEGATIVE); LEUKOCYTES URINE LARGE (NEGATIVE); NITRITE URINE NEGATIVE (NEGATIVE); PROTEIN URINE TRACE mg/dL (NEGATIVE); SP GRAVITY URINE 1.017; TURBIDITY URINE CLEAR (CLEAR); UROBILINOGEN URINE 2 mg/dL (NORMAL)
[2019-05-11 05:58] LABS: UR EPITHELIAL CELLS <10 /HPF (<10); URINE BACTERIA NEGATIVE /HPF; URINE RBC <10 /HPF (<10)
[2019-05-11] MEDS: SYNTHROID PO SCH (06:09)
[2019-05-11] MEDS: PRILOSEC PO SCH (06:09)
[2019-05-11 06:13] LABS: URINE CASTS NONE SEEN; URINE CRYSTALS NONE SEEN; URINE SMALL ROUND CELLS NONE SEEN; URINE YEAST PRESENT
[2019-05-11 07:41] LABS: HEMATOCRIT 33.2 % (37.0-47.0); HEMOGLOBIN 10.7 g/dL (12.0-16.0); MCH 27.6 PG (27-31); MCHC 32.2 g/dL (33-37); MCV 85.6 FL (81-99); MPV 10.2 FL (7.4-10.4); RBC 3.88 XMIL (4.2-5.4); RDW 15.1 % (11.5-14.5); WBC 10.67 X1000 (4.8-10.8)
[2019-05-11 08:01] LABS: AGAP 11; ALB/GLOB RATIO 0.8; ALBUMIN 3.1 g/dL (3.5-5.0); ALKALINE PHOSPHATASE 90 U/L (32-104); BUN 9 mg/dL (8-22); CALCIUM 8.5 mg/dL (8.8-10.2); CHLORIDE 107 mmol/L (98-107); COSMO 280; CREATININE 0.8 mg/dL (0.5-0.9); ESTIMATED GFR > 60; GLUCOSE 94 mg/dL (70-104); GOT 30 U/L (10-30); GPT 16 U/L (10-36); POTASSIUM 3.6 mmol/L (3.5-5.1); SODIUM 141 mmol/L (136-145); TCO2 23 mmol/L (25-35); TOTAL BILIRUBIN 1.04 mg/dL (0.20-1.00); TOTAL PROTEIN 7.1 g/dL (6.3-8.3)
--- NOTE | 2019-05-11 08:14 | Diag Imaging Result Doc PS360 ---
US ABDOMEN-COMPLETE - 05/11/2019 INDICATION: liver cirrhosis COMPARISON: CT from 05/10/2019 FINDINGS: The liver demonstrates a nodular contour. There is also increased echotexture compatible with fatty change. No biliary dilation. No visible liver mass. The gallbladder is absent. Common bile duct measures 9 mm. The spleen is not enlarged. The pancreas is somewhat atrophic. Both kidneys are normal. Aorta, IVC, and main portal vein are patent. No free fluid. IMPRESSION: Cirrhotic liver with fatty change. Electronically signed by Wilbert Wade 05/11/2019 8:12 AM
[2019-05-11] MEDS: FLAGYL 500 MG/NS 500 MG/100 ML IVPB IV SCH ×4 (08:15→23:20)
[2019-05-11] MEDS: FLONASE NAS SCH (08:40)
[2019-05-11] MEDS: CIPRO 400 MG/D5W 400 MG/200 ML IVPB IV SCH ×2 (12:16→17:45)
--- NOTE | 2019-05-11 16:04 | PROGRESS NOTE ---
DATE: 05/11/2019 SUBJECTIVE: The patient is resting comfortably in bed. She did complain of some abdominal pain last night. She is more alert today. OBJECTIVE: Vital Signs: T-max 99.1 degrees, blood pressure 103/48, heart rate 105, respirations 18, O2 saturation 96% on room air. General: This is a elderly female lying in bed in no acute distress. Heart: S1, S2 normal. Tachycardic. Lungs: Equal air entry bilaterally. No wheezing. No rales. Abdomen: Positive bowel sounds. Soft. Extremities: 1+ edema bilaterally. Neurologic: The patient is alert and oriented to person and place. She is able to move all 4 extremities. LABS: White blood cell count 10, hemoglobin 10, hematocrit 33, platelets 139,000. Sodium 141, potassium 3.6, chloride 107, CO2 23, BUN 9, creatinine 0.8, glucose 94, total bilirubin 1. IMAGING: Abdominal ultrasound reveals liver cirrhosis with fatty changes. ASSESSMENT AND PLAN: 1. Metabolic encephalopathy. Improved. Continue to monitor closely. 2. Acute sigmoid diverticulitis. The patient was started on ciprofloxacin and Flagyl. We will continue to monitor closely. 3. Urinary tract infection secondary to Escherichia coli. The repeat urine culture is currently pending. Continue with antibiotic therapy. 4. Hypothyroidism. Continue on Synthroid. 5. Anemia. Stable. 6. Gastroesophageal reflux disease. Continue on Prilosec. 7. Deep vein thrombosis prophylaxis. Continue on Lovenox. 8. Disposition. Continue with physical therapy. The patient will likely require inpatient rehab placement. We will consult Machine Setter for assistance with placement. cc: Sonya Gill MD MTDKassi
[2019-05-12] MEDS: FLAGYL 500 MG/NS 500 MG/100 ML IVPB IV SCH ×4 (05:35→23:58)
[2019-05-12] MEDS: CIPRO 400 MG/D5W 400 MG/200 ML IVPB IV SCH ×2 (06:40→18:43)
[2019-05-12] MEDS: PRILOSEC PO SCH (06:41)
[2019-05-12] MEDS: SYNTHROID PO SCH (06:41)
[2019-05-12 07:13] LABS: HEMATOCRIT 31.8 % (37.0-47.0); HEMOGLOBIN 9.8 g/dL (12.0-16.0); MCH 26.6 PG (27-31); MCHC 30.8 g/dL (33-37); MCV 86.2 FL (81-99); MPV 10.4 FL (7.4-10.4); RBC 3.69 XMIL (4.2-5.4); WBC 6.48 X1000 (4.8-10.8)
[2019-05-12 07:41] LABS: AGAP 10; BUN 10 mg/dL (8-22); CALCIUM 8.5 mg/dL (8.8-10.2); CHLORIDE 108 mmol/L (98-107); COSMO 280; CREATININE 0.8 mg/dL (0.5-0.9); ESTIMATED GFR > 60; GLUCOSE 102 mg/dL (70-104); POTASSIUM 3.5 mmol/L (3.5-5.1); SODIUM 141 mmol/L (136-145); TCO2 23 mmol/L (25-35)
[2019-05-12] MEDS: FLONASE NAS SCH (09:36)
--- NOTE | 2019-05-12 20:29 | PROGRESS NOTE ---
DATE: 05/12/2019 SUBJECTIVE: The patient states that she feels much better. She is awake and alert. She states that she is not having any abdominal pain. She is having regular bowel movements. OBJECTIVE: Vital Signs: Temperature 98 degrees, blood pressure 144/57, heart rate 105, respirations 18, O2 saturation 98% on room air. General: This is a chronically ill-appearing, elderly female lying in bed in no acute distress. Heart: S1, S2 normal. Tachycardic. Lungs: Clear to auscultation bilaterally. No wheezing. No rales. No rhonchi. Abdomen: Positive bowel sounds. Soft, obese, nontender, nondistended. Extremities: Trace pedal edema in the lower extremities. Neurologic: The patient is alert and oriented x3. LABS: White blood cell count 6.4, hemoglobin 9.8, hematocrit 31, platelets 146,000. Sodium 141, potassium 3.5, chloride 108, CO2 23, BUN 10, creatinine 0.8, glucose 102. ASSESSMENT AND PLAN: 1. Metabolic encephalopathy. Resolved. 2. Acute sigmoid diverticulitis. Continue on ciprofloxacin and Flagyl. Today is day 2 of therapy. 3. Urinary tract infection secondary to Escherichia coli. Resolved. The repeat urine culture shows no growth. 4. Hypothyroidism. Continue on Synthroid. 5. Gastroesophageal reflux disease. Continue on Prilosec. 6. Anemia. Stable. 7. Deep vein thrombosis prophylaxis. Continue on Lovenox. 8. Disposition. Amplifier Mechanic was consulted for inpatient rehab placement. cc: Sonya Gill MD
[2019-05-12] MEDS: SEROQUEL PO SCH (21:07)
[2019-05-12] MEDS: LOVENOX SUBQ SCH (21:07)
[2019-05-12] MEDS: COREG PO SCH (21:07)
[2019-05-13] MEDS: CIPRO 400 MG/D5W 400 MG/200 ML IVPB IV SCH (05:14)
[2019-05-13] MEDS: FLAGYL 500 MG/NS 500 MG/100 ML IVPB IV SCH ×2 (06:51→13:29)
[2019-05-13] MEDS: PRILOSEC PO SCH (06:52)
[2019-05-13] MEDS: SYNTHROID PO SCH (06:52)
--- NOTE | 2019-05-13 07:26 | EKG Report ---
Test Performed on : 05/13/2019 06:39:31 AM Test Reason : tachycardia Blood Pressure : / mmHG Vent. Rate : 085 BPM Atrial Rate : 085 BPM P-R Int : 122 ms QRS Dur : 088 ms QT Int : 404 ms P-R-T Axes : 030 040 030 degrees QTc Int : 480 ms Sinus rhythm. with premature atrial complexes. Low voltage QRS Nonspecific T wave abnormality Prolonged QT Abnormal ECG When compared with ECG of 10-MAY-2019 20:48, Nonspecific T wave abnormality, improved in Lateral leads Confirmed by Adam Yanes MD ([id number]) on 05/14/2019 4:59:30 PM
[2019-05-13 07:43] LABS: HEMOGLOBIN 9.6 g/dL (12.0-16.0); MCH 26.7 PG (27-31); MCV 86.1 FL (81-99); MPV 10.3 FL (7.4-10.4); RBC 3.6 XMIL (4.2-5.4); WBC 5.34 X1000 (4.8-10.8)
[2019-05-13 08:01] LABS: AGAP 10; BUN 11 mg/dL (8-22); CALCIUM 8.3 mg/dL (8.8-10.2); CHLORIDE 108 mmol/L (98-107); COSMO 282; CREATININE 0.9 mg/dL (0.5-0.9); ESTIMATED GFR > 60; GLUCOSE 88 mg/dL (70-104); POTASSIUM 3.4 mmol/L (3.5-5.1); SODIUM 142 mmol/L (136-145); TCO2 24 mmol/L (25-35)
[2019-05-13] MEDS ORDERED: KLOR-CON PO ONE (08:04)
[2019-05-13] MEDS: COREG PO SCH (09:38)
[2019-05-13 13:23] VITALS: BP 118/73
[2019-05-13] MEDS: FLONASE NAS SCH (16:09)
--- NOTE | 2019-05-19 15:55 | DISCHARGE SUMMARY ---
ADMISSION DATE: 05/05/2019 DISCHARGE DATE: 05/13/2019 FINAL DISCHARGE DIAGNOSES: 1. Metabolic encephalopathy. 2. Acute sigmoid diverticulitis. 3. Urinary tract infection secondary to Escherichia coli. 4. Hypothyroidism. 5. Gastroesophageal reflux disease. 6. Obesity. 7. Anemia. HOSPITAL COURSE: Ms. Blanton is a 74-year-old female with a history of multiple medical problems who presented to the ER with confusion. On admission, a urinalysis was performed that was positive for infection. A urine culture was obtained and the patient was started on antibiotics. Ultimately, the urine culture grew Escherichia coli. Despite treatment for the urinary tract infection the patient remained confused. A CT of the abdomen and pelvis was done that revealed acute sigmoid diverticulitis. The patient's antibiotics were switched to ciprofloxacin and Flagyl. With the initiation of these antibiotics, the patient improved clinically and her mental status returned to her baseline. The patient does have known liver cirrhosis that is followed by Dr. Devries as an outpatient. The patient continued to improve clinically and was cleared for discharge home on 05/13/2019. DISCHARGE MEDICATIONS: 1. Ciprofloxacin 500 mg oral twice a day x8 days. 2. Flagyl 500 mg oral every 6 hours x8 days. 3. Lactobacillus 1 tab oral daily. 4. Imipramine 25 mg oral 3 times a day. 5. Prilosec 20 mg oral daily. 6. Potassium chloride 10 mEq oral daily. 7. Zoloft 100 mg oral daily. 8. Synthroid 112 mcg oral daily. 9. Lasix 40 mg oral daily. 10. Zofran 4 mg every 6 hours p.r.n. for nausea. 11. Aldactone 25 mg oral daily. 12. Tramadol 50 mg oral every 12 hours p.r.n. for pain. 13. Singulair 10 mg oral daily. DISCHARGE DIET: No seeds, heart healthy diet. ACTIVITY: As tolerated. FOLLOWUP INSTRUCTIONS: The patient has been advised to follow up with her primary care physician in 1 to 2 weeks. cc: Sonya Gill MD
== END 2019-05-13 17:37 | disposition home health service (06) | DRG 689 ==
LOC: ED 18:03 → EDIPHOLD 18:03 → SUATTDRO 05-04 01:41 → 3N 05-04 14:22 → SUATTDRO 05-05 09:14
PROVIDERS: ATTEND Internal Medicine